=== PATIENT | male | born 1975 | race Hispanic/Latino ===

== ENCOUNTER 2020-08-07 06:05 | Emergency (ER) | payer SELFPAY ==
[2020-08-07] MEDS ORDERED: ASPIRIN 325 MG TABLET ONE (06:08)
[2020-08-07 06:50] LABS: INR 0.95 (0.85-1.15); PARTIAL THROMBOPLASTIN TIME 26.2 SEC (26.3-35.5); PROTHROMBIN TIME 10.3 SEC (9.6-11.6)
[2020-08-07 06:53] LABS: ALBUMIN 3.7 g/dL (3.5-5.0); BASOPHILS % (AUTO) 0.5 % (0.0-5.0); BILIRUBIN,TOTAL 0.5 mg/dL (0.2-1.0); CREATININE 1.3 mg/dL (0.5-1.5); EOSINOPHILS % (AUTO) 3.4 % (0.0-8.0); HEMATOCRIT 40.9 % (42-54); LYMPHOCYTES % (AUTO) 28.2 % (21.0-51.0); MEAN CORPUSCULAR HGB CONC 33.7 g/dL (32.0-36.0); MEAN CORPUSCULAR VOLUME 91.9 fL (79-99); MONOCYTES % (AUTO) 8.8 % (3.0-13.0); PLATELET COUNT (AUTO) 208 K/uL (130-400); POTASSIUM 3.7 mmol/L (3.5-5.1); RED BLOOD CELL COUNT(AUTO) 4.45 MIL/uL (4.50-6.20); RED CELL DISTRIBUTION WIDTH 14.4 % (11.0-15.5); TOTAL PROTEIN, SERUM 7.6 g/dL (6.0-8.3)
== END 2020-08-07 09:07 | disposition home or self-care (01) ==
LOC: EDH 06:05
DX: R07.89 Other chest pain (principal)
CPT/HCPCS: 36415; 71045; 80053; 82550; 83690; 84484; 85025; 85610; 85730; 93005

== ENCOUNTER 2021-11-16 10:29 | Emergency (ER) | payer OTHER ==
[~2021-11-16] VITALS: Ht 167.6 cm; Wt 132.4 kg
[2021-11-16 10:32] VITALS: BP 142/80
[2021-11-16 11:05] LABS: BASOPHILS % (AUTO) 0.8 % (0.0-5.0); EOSINOPHILS % (AUTO) 3.7 % (0.0-8.0); HEMATOCRIT 42.7 % (42-54); LYMPHOCYTES % (AUTO) 19.9 % (21.0-51.0); MEAN CORPUSCULAR HEMOGLOBIN 30.5 pg (27.0-33.0); MEAN CORPUSCULAR VOLUME 92.4 fL (79-99); MONOCYTES % (AUTO) 5.8 % (3.0-13.0); NEUTROPHILS % (AUTO) 68.6 % (40.0-77.0); PLATELET COUNT (AUTO) 172 K/uL (130-400); RED BLOOD CELL COUNT(AUTO) 4.62 MIL/uL (4.50-6.20); RED CELL DISTRIBUTION WIDTH 14.4 % (11.0-15.5); WHITE BLOOD COUNT (AUTO) 7.5 K/uL (4.8-10.8)
[2021-11-16 11:13] LABS: CREATININE 1.2 mg/dL (0.5-1.5); POTASSIUM 3.7 mmol/L (3.5-5.1)
[2021-11-16 11:18] LABS: ALBUMIN 3.9 g/dL (3.5-5.0); BILIRUBIN,TOTAL 0.6 mg/dL (0.2-1.0); TOTAL PROTEIN, SERUM 7.6 g/dL (6.0-8.3)
[2021-11-16 11:53] LABS: INR 1.06 (0.85-1.15)
[2021-11-16] MEDS ORDERED: ASPI-1005 PO (15:53)
[2021-11-16] MEDS ORDERED: ASPIRIN 81MG CHEW TAB PO ONE (16:00)
== END 2021-11-16 16:27 | disposition home or self-care (01) ==
LOC: EDH 10:29
DX: R07.89 Other chest pain (principal); I10 Essential (primary) hypertension; Z79.82 Long term (current) use of aspirin
CPT/HCPCS: 36415; 71046; 80053; 82550; 84484; 85025; 85610; 93005

== ENCOUNTER 2023-04-09 08:48 | Emergency (ER) | payer BC, OTHER ==
[~2023-04-09] VITALS: Ht 167.6 cm; Wt 131.5 kg
[~2023-04-09 08:48] MED LIST: ASPI-1005 PO
[2023-04-09 09:26] LABS: BASOPHILS % (AUTO) 0.7 % (0.0-5.0); EOSINOPHILS % (AUTO) 4.4 % (0.0-8.0); HEMATOCRIT 40.7 % (42-54); LYMPHOCYTES % (AUTO) 25.1 % (21.0-51.0); MEAN CORPUSCULAR HEMOGLOBIN 30.6 pg (27.0-33.0); MEAN CORPUSCULAR HGB CONC 33.7 g/dL (32.0-36.0); MEAN CORPUSCULAR VOLUME 91.1 fL (79-99); MONOCYTES % (AUTO) 8.7 % (3.0-13.0); NEUTROPHILS % (AUTO) 60.1 % (40.0-77.0); PLATELET COUNT (AUTO) 163 K/uL (130-400); RED BLOOD CELL COUNT(AUTO) 4.47 MIL/uL (4.50-6.20); RED CELL DISTRIBUTION WIDTH 14.6 % (11.0-15.5); WHITE BLOOD COUNT (AUTO) 7.2 K/uL (4.8-10.8)
[2023-04-09 09:59] LABS: ALBUMIN 3.6 g/dL (3.5-5.0); CREATININE 1.2 mg/dL (0.5-1.5); POTASSIUM 3.6 mmol/L (3.5-5.1); TOTAL PROTEIN, SERUM 7.2 g/dL (6.0-8.3)
[2023-04-09 11:43] LABS: APPEARANCE,URINE CLEAR (CLEAR); BILIRUBIN,URINE NEGATIVE (NEGATIVE); COLOR,URINE LIGHT-YELLOW (YELLOW); GLUCOSE, URINE (UA) NEGATIVE (NEGATIVE); KETONES,URINE NEGATIVE (NEGATIVE); LEUKOCYTE ESTERASE ,URINE NEGATIVE Leu/uL (NEGATIVE); NITRATE,URINE NEGATIVE (NEGATIVE); OCCULT BLOOD,URINE NEGATIVE (NEGATIVE); PH,URINE 5.5 (5.0-8.0); PROTEIN,URINE NEGATIVE (NEGATIVE); UROBILINOGEN,URINE 0.2 mg/dL (0.2-1.0)
[2023-04-09] MEDS ORDERED: LACTULOSE 20 GM/30 ML UDCUP PO ONE (13:30)
[2023-04-09] MEDS ORDERED: LACT10SO9 PO (13:30)
[2023-04-09 13:46] VITALS: BP 126/74
== END 2023-04-09 13:49 | disposition home or self-care (01) ==
LOC: EDH 08:48
DX: K59.00 Constipation, unspecified (principal); I10 Essential (primary) hypertension; Z20.822 Contact with and (suspected) exposure to COVID-19
CPT/HCPCS: 99284; 74176; 87635; 80053; 83690; 85025; 87804 ×2; 81003; 36415; 93005; C9803

== ENCOUNTER 2023-05-03 05:14 | Emergency (ER) | payer BC ==
[~2023-05-03] VITALS: Ht 167.6 cm; Wt 137.0 kg
[~2023-05-03 05:14] MED LIST changes: +LACT10SO9 PO
[2023-05-03 05:38] LABS: BASOPHILS % (AUTO) 0.5 % (0.0-5.0); EOSINOPHILS % (AUTO) 3.1 % (0.0-8.0); HEMATOCRIT 41.5 % (42-54); LYMPHOCYTES % (AUTO) 21.1 % (21.0-51.0); MEAN CORPUSCULAR HEMOGLOBIN 30.5 pg (27.0-33.0); MEAN CORPUSCULAR VOLUME 89.6 fL (79-99); MONOCYTES % (AUTO) 9.2 % (3.0-13.0); PLATELET COUNT (AUTO) 183 K/uL (130-400); RED BLOOD CELL COUNT(AUTO) 4.63 MIL/uL (4.50-6.20); RED CELL DISTRIBUTION WIDTH 14.9 % (11.0-15.5); WHITE BLOOD COUNT (AUTO) 8.5 K/uL (4.8-10.8)
[2023-05-03 05:50] LABS: CREATININE 1.3 mg/dL (0.5-1.5); POTASSIUM 3.4 mmol/L (3.5-5.1)
[2023-05-03 05:54] LABS: ALBUMIN 3.7 g/dL (3.5-5.0); TOTAL PROTEIN, SERUM 7.6 g/dL (6.0-8.3)
[2023-05-03] MEDS ORDERED: LACTATED RINGERS 1000ML 1,000 ML IV ONE (07:00)
[2023-05-03] MEDS ORDERED: MORPHINE 4 MG SYG IVP ONE (07:00)
[2023-05-03] MEDS ORDERED: METOCLOPRAMIDE 10 MG/2 ML VIAL IVP ONE (07:00)
[2023-05-03] MEDS ORDERED: FAMOTIDINE 20MG VIAL IV ONE (07:00)
[2023-05-03] MEDS ORDERED: POTASSIUM CHLORIDE 10% ELIXIR 20 MEQ/15 ML UDCUP PO ONE (08:30)
[2023-05-03 09:02] LABS: APPEARANCE,URINE CLEAR (CLEAR); BILIRUBIN,URINE NEGATIVE (NEGATIVE); COLOR,URINE COLORLESS (YELLOW); GLUCOSE, URINE (UA) NEGATIVE (NEGATIVE); KETONES,URINE NEGATIVE (NEGATIVE); LEUKOCYTE ESTERASE ,URINE NEGATIVE Leu/uL (NEGATIVE); NITRATE,URINE NEGATIVE (NEGATIVE); OCCULT BLOOD,URINE NEGATIVE (NEGATIVE); PROTEIN,URINE NEGATIVE (NEGATIVE); UROBILINOGEN,URINE 0.2 mg/dL (0.2-1.0)
[2023-05-03] MEDS ORDERED: PANT40TA55 PO (09:58)
[2023-05-03] MEDS ORDERED: POLY17PO4 PO (09:58)
[2023-05-03 12:17] VITALS: BP 133/84
== END 2023-05-03 12:16 | disposition home or self-care (01) ==
LOC: EDH 05:14
DX: K59.00 Constipation, unspecified (principal); F41.9 Anxiety disorder, unspecified; E78.00 Pure hypercholesterolemia, unspecified; I10 Essential (primary) hypertension; Z79.82 Long term (current) use of aspirin; Z90.49 Acquired absence of other specified parts of digestive tract
CPT/HCPCS: 99284; 74176; 96374; 71045; 96361; 96375; 84484 ×2; 80053; 83690; 85025; 81003; 36415; 93005; J7120; J3490; J2765; J2270

== ENCOUNTER 2023-10-08 13:41 | Emergency (ER) | payer BC ==
[~2023-10-08] VITALS: Ht 167.6 cm; Wt 142.9 kg
[~2023-10-08 13:41] MED LIST changes: +PANT40TA55 PO; +POLY17PO4 PO
[2023-10-08 15:54] LABS: RAPID GROUP A STREP negative (NEGATIVE)
[2023-10-08 15:58] LABS: SARS-CoV-2, RNA, NAAT NEGATIVE SARS CoV-2 (NEGATIVE)
[2023-10-08 16:00] LABS: INFLUENZA TYPE B Negative For Type B (NEGATIVE)
[2023-10-08 16:10] LABS: INFLUENZA TYPE A Positive For Type A (NEGATIVE)
[2023-10-08] MEDS ORDERED: OSEL75 PO (18:39)
[2023-10-08] MEDS ORDERED: IBUP-2077 PO (18:39)
[2023-10-08] MEDS ORDERED: IBUPROFEN 800 MG TAB PO ONE (19:00)
[2023-10-08] MEDS ORDERED: OSELTAMIVIR PHOSPHATE 75 MG CAP PO ONE (19:00)
[2023-10-08 19:09] VITALS: BP 138/76; PULSE 72; RESP 18; O2SAT 98
== END 2023-10-08 19:16 | disposition home or self-care (01) ==
LOC: EDH 13:41
DX: J10.1 Influenza due to other identified influenza virus with other respiratory manifestations (principal); B34.9 Viral infection, unspecified; K21.9 Gastro-esophageal reflux disease without esophagitis; I10 Essential (primary) hypertension; F41.9 Anxiety disorder, unspecified; E78.00 Pure hypercholesterolemia, unspecified; Z79.82 Long term (current) use of aspirin; Z90.49 Acquired absence of other specified parts of digestive tract; Z20.822 Contact with and (suspected) exposure to COVID-19
CPT/HCPCS: 99283; 87635; 87880; 87804 ×2; C9803